=== PATIENT | female | born 1995 | race African-American/Black ===

== ENCOUNTER 2017-12-30 08:46 | Emergency (ER) | payer MEDICAID ==
[~2017-12-30] VITALS: Ht 167.6 cm; Wt 64.0 kg
[2017-12-30 09:17] VITALS: BP 117/74
== END 2017-12-30 15:09 | disposition left against medical advice (07) ==
LOC: ER 08:46
DX: Z53.21 Procedure and treatment not carried out due to patient leaving prior to being seen by health care provider (principal); F17.210 Nicotine dependence, cigarettes, uncomplicated